=== PATIENT | female | born 1930 | race Caucasian/White ===

== ENCOUNTER → 2016-04-05 | Outpatient (CLI) | payer MEDICARE, OTHER ==
[~2016-04-05] MED LIST: CLOP75TA28 PO; GLIP-116 PO; ISOS60TA24 PO; LINA5TAB PO; RAMI2.5C33 PO; SIMV-8 PO
[2016-04-05 13:23] LABS: Basophils # (auto) 0 uL; Basophils % (auto) 0.3 % (0.0-2.0); Eosinophils # (auto) 0.2 uL; Eosinophils % (auto) 2.8 % (0.0-7.0); Hematocrit 42.1 % (36.0-46.0); Hemoglobin 13.7 g/dL (12.2-16.2); Lymphocytes # (auto) 1.8 uL; Mean Corpuscular Hemoglobin 30.2 pg (28.0-32.0); Mean Corpuscular Hgb Conc. 32.6 g/dL (32.0-36.0); Mean Corpuscular Volume 92.6 fL (80.0-100.0); Monocytes # (auto) 0.5 uL; Monocytes % (auto) 7.1 % (0.0-12.0); Neutrophils # (auto) 4.3 uL; Neutrophils % (auto) 62.8 % (37.0-80.0); Platelet Count (auto) 205 10^3/uL (140-450); Red Cell Distribution Width 13.1 % (11.6-16.0); White Blood Cell 6.8 10^3/uL (4.4-10.8)
[2016-04-05 13:39] LABS: Albumin 4.1 g/dL (3.4-5.0); BUN/Creatinine Ratio 20.3; Bilirubin, Total 0.4 mg/dL (0.2-1.0); Calcium 9.4 mg/dL (8.5-10.1); Potassium 4.1 mmol/L (3.5-5.1); Total Protein 7.4 g/dL (6.4-8.2)
== END | disposition home or self-care (01) ==
LOC: LAB 09:18
PROVIDERS: ATTEND Internal Medicine Cardiovascular Disease
DX: I10 Essential (primary) hypertension (principal); E03.9 Hypothyroidism, unspecified; D64.9 Anemia, unspecified; E11.9 Type 2 diabetes mellitus without complications
CPT/HCPCS: 36415; 80053; 83036; 84436; 84443; 84480; 85025

== ENCOUNTER → 2017-01-07 | Outpatient (CLI) | payer MEDICARE, OTHER ==
[2017-01-07 12:40] LABS: Basophils # (auto) 0 uL; Basophils % (auto) 0.5 % (0.0-2.0); Eosinophils # (auto) 0.1 uL; Hematocrit 40.1 % (36.0-46.0); Hemoglobin 13.3 g/dL (12.2-16.2); Lymphocytes # (auto) 1.7 uL; Lymphocytes % (auto) 27.3 % (10.0-50.0); Mean Corpuscular Hemoglobin 31.9 pg (28.0-32.0); Mean Corpuscular Hgb Conc. 33.2 g/dL (32.0-36.0); Mean Corpuscular Volume 96.1 fL (80.0-100.0); Mean Platelet Volume 7.8 fL (6.9-10.8); Monocytes # (auto) 0.5 uL; Monocytes % (auto) 8.2 % (0.0-12.0); Nucleated Red Blood Cells % 0.6 %; Platelet Count (auto) 176 10^3/uL (140-450); Red Cell Distribution Width 13.5 % (11.8-14.3); White Blood Cell 6.4 10^3/uL (4.4-10.8)
[2017-01-07 12:46] LABS: Urine Bilirubin Negative (Negative); Urine Blood Negative /uL (Negative); Urine Color Yellow (Yellow); Urine Glucose Normal (Normal); Urine Ketone Negative (Negative); Urine Nitrite Negative (Negative); Urine Urobilinogen Normal (Negative)
[2017-01-07 13:09] LABS: Albumin 4.2 g/dL (3.4-5.0); BUN/Creatinine Ratio 22.6; Bilirubin, Direct 0.1 mg/dL (0-0.2); Bilirubin, Total 0.5 mg/dL (0.2-1.0); Calcium 9.4 mg/dL (8.5-10.1); Potassium 4.4 mmol/L (3.5-5.1); Total Protein 7.7 g/dL (6.4-8.2)
== END | disposition home or self-care (01) ==
LOC: LAB 08:08
PROVIDERS: ATTEND Internal Medicine Cardiovascular Disease
DX: I10 Essential (primary) hypertension (principal); E78.00 Pure hypercholesterolemia, unspecified; K74.1 Hepatic sclerosis; E11.9 Type 2 diabetes mellitus without complications; E03.9 Hypothyroidism, unspecified; D64.9 Anemia, unspecified; E55.9 Vitamin D deficiency, unspecified; N39.0 Urinary tract infection, site not specified
CPT/HCPCS: 36415; 80048; 80061; 80076; 81003; 82306; 83036; 84439; 84443; 85025; 87086

== ENCOUNTER → 2017-01-08 | Outpatient (CLI) | payer MEDICARE, OTHER | END | disposition home or self-care (01) | LOC: Rad HDHVI 07:55 | PROVIDERS: ATTEND Internal Medicine Cardiovascular Disease | DX: R07.89 Other chest pain (principal); I10 Essential (primary) hypertension; E11.9 Type 2 diabetes mellitus without complications; E78.5 Hyperlipidemia, unspecified | CPT/HCPCS: 93306; 93926 ==

== ENCOUNTER → 2017-04-04 | Outpatient (CLI) | payer MEDICARE, OTHER ==
[~2017-04-04] VITALS: Ht 30.5 cm; Wt 0.5 kg
[~2017-04-04] MED LIST changes: +ADENOSINE 56 MG in GIVE UN-DILUTED 0 ML IV ONE; +ADENOSINE 90 MG/30 ML INJ IV ONE
== END | disposition home or self-care (01) ==
LOC: Rad HDHVI 09:55
PROVIDERS: ATTEND Internal Medicine Cardiovascular Disease
DX: I73.9 Peripheral vascular disease, unspecified (principal); E11.65 Type 2 diabetes mellitus with hyperglycemia; E78.00 Pure hypercholesterolemia, unspecified; Z79.4 Long term (current) use of insulin
CPT/HCPCS: 78452; 93005; 96374; 96375; A9500; J0153

== ENCOUNTER → 2017-04-08 | Outpatient (CLI) | payer MEDICARE, OTHER ==
[~2017-04-08] MED LIST changes: -ADENOSINE 56 MG in GIVE UN-DILUTED 0 ML IV ONE; -ADENOSINE 90 MG/30 ML INJ IV ONE
== END | disposition home or self-care (01) ==
LOC: Rad HDHVI 08:18
PROVIDERS: ATTEND Internal Medicine Cardiovascular Disease
DX: I73.9 Peripheral vascular disease, unspecified (principal)
CPT/HCPCS: 93880

== ENCOUNTER → 2017-10-02 | Outpatient (CLI) | payer MEDICARE, BC ==
[2017-10-02 12:07] LABS: Basophils # (auto) 0 uL; Basophils % (auto) 0.3 % (0.0-2.0); Eosinophils # (auto) 0.1 uL; Eosinophils % (auto) 1.3 % (0.0-7.0); Hematocrit 37.8 % (36.0-46.0); Hemoglobin 12.5 g/dL (12.2-16.2); Lymphocytes # (auto) 1.7 uL; Lymphocytes % (auto) 21.7 % (10.0-50.0); Mean Corpuscular Hemoglobin 30.8 pg (28.0-32.0); Mean Corpuscular Hgb Conc. 33.1 g/dL (32.0-36.0); Mean Corpuscular Volume 93.2 fL (80.0-100.0); Monocytes # (auto) 0.5 uL; Monocytes % (auto) 6.6 % (0.0-12.0); Neutrophils # (auto) 5.5 uL; Neutrophils % (auto) 70.1 % (37.0-80.0); Nucleated Red Blood Cells % 0.2 %; Platelet Count (auto) 185 10^3/uL (140-450); Red Blood Cells 4.06 10^6/uL (4.0-5.20); Red Cell Distribution Width 14.1 % (11.8-14.3); White Blood Cell 7.9 10^3/uL (4.4-10.8)
[2017-10-02 12:10] LABS: Urine Blood Negative /uL (Negative); Urine Specific Gravity 1.016 (1.001-1.035)
[2017-10-02 12:25] LABS: Free T4 (Free Thyroxine) 1.05 ng/dL (0.89-1.76)
[2017-10-02 12:45] LABS: Albumin 3.8 g/dL (3.4-5.0); BUN/Creatinine Ratio 22.4; Bilirubin, Total 0.5 mg/dL (0.2-1.0); Calcium 9.4 mg/dL (8.5-10.1); Potassium 4.1 mmol/L (3.5-5.1)
== END | disposition home or self-care (01) ==
LOC: LAB 08:36
PROVIDERS: ATTEND Internal Medicine Cardiovascular Disease
DX: Z00.01 Encounter for general adult medical examination with abnormal findings (principal); E11.9 Type 2 diabetes mellitus without complications; E03.9 Hypothyroidism, unspecified; E55.9 Vitamin D deficiency, unspecified; D51.9 Vitamin B12 deficiency anemia, unspecified; N39.0 Urinary tract infection, site not specified; E78.00 Pure hypercholesterolemia, unspecified; I10 Essential (primary) hypertension; E78.2 Mixed hyperlipidemia; Z79.4 Long term (current) use of insulin
CPT/HCPCS: 36415; 80053; 80061; 81003; 82306; 82607; 83036; 84439; 84443; 85025

== ENCOUNTER → 2018-04-27 | Outpatient (CLI) | payer MEDICARE, BC | END | disposition home or self-care (01) | LOC: Rad HDHVI 14:03 | PROVIDERS: ATTEND Internal Medicine Cardiovascular Disease | DX: K57.30 Diverticulosis of large intestine without perforation or abscess without bleeding (principal) | CPT/HCPCS: 74176 ==

== ENCOUNTER → 2018-05-06 | Outpatient (CLI) | payer MEDICARE, BC | END | disposition home or self-care (01) | LOC: Rad HDHVI 13:50 | PROVIDERS: ATTEND Internal Medicine Cardiovascular Disease | DX: I77.1 Stricture of artery (principal); I10 Essential (primary) hypertension; I20.0 Unstable angina | CPT/HCPCS: 93306; 93926 ==

== ENCOUNTER → 2018-05-13 | Outpatient (CLI) | payer MEDICARE, BC ==
[~2018-05-13] VITALS: Ht 170.2 cm; Wt 64.9 kg
[~2018-05-13] MED LIST changes: +ADENOSINE 54 MG in GIVE UN-DILUTED 0 ML IV ONE; +ADENOSINE 90 MG/30 ML INJ IV ONE
[2018-05-13 11:17] LABS: Urine Blood Negative /uL (Negative); Urine Specific Gravity 1.016 (1.001-1.035)
[2018-05-13 11:23] LABS: Calcium 9.6 mg/dL (8.5-10.1); Potassium 4.2 mmol/L (3.5-5.1)
[2018-05-13 11:28] LABS: Bilirubin, Total 0.5 mg/dL (0.2-1.0); Total Protein 7.5 g/dL (6.4-8.2)
[2018-05-13 11:34] LABS: Free T4 (Free Thyroxine) 0.94 ng/dL (0.89-1.76)
[2018-05-13 11:43] LABS: Basophils # (auto) 0 uL; Basophils % (auto) 0.2 % (0.0-2.0); Eosinophils # (auto) 0.1 uL; Hemoglobin 13.9 g/dL (12.2-16.2); Lymphocytes # (auto) 1.8 uL; Lymphocytes % (auto) 23.1 % (10.0-50.0); Mean Corpuscular Hemoglobin 31.7 pg (28.0-32.0); Mean Corpuscular Hgb Conc. 33.9 g/dL (32.0-36.0); Mean Corpuscular Volume 93.5 fL (80.0-100.0); Monocytes # (auto) 0.5 uL; Monocytes % (auto) 6.1 % (0.0-12.0); Neutrophils # (auto) 5.3 uL; Neutrophils % (auto) 69.6 % (37.0-80.0); Nucleated Red Blood Cells % 0.2 %; Platelet Count (auto) 174 10^3/uL (140-450); Red Blood Cells 4.38 10^6/uL (4.0-5.20); Red Cell Distribution Width 13.3 % (11.8-14.3); White Blood Cell 7.6 10^3/uL (4.4-10.8)
== END | disposition home or self-care (01) ==
LOC: Rad HDHVI 07:57
PROVIDERS: ATTEND Internal Medicine Cardiovascular Disease
DX: I73.9 Peripheral vascular disease, unspecified (principal); E11.649 Type 2 diabetes mellitus with hypoglycemia without coma; R10.9 Unspecified abdominal pain; I10 Essential (primary) hypertension; E03.9 Hypothyroidism, unspecified; E55.9 Vitamin D deficiency, unspecified; E11.9 Type 2 diabetes mellitus without complications; D51.9 Vitamin B12 deficiency anemia, unspecified; N39.0 Urinary tract infection, site not specified
CPT/HCPCS: 36415; 78452; 80053; 80061; 81003; 82306; 82607; 83036; 84439; 84443; 85025; 87086; 93005; 96374; 96375; A9500; J0153

== ENCOUNTER → 2018-06-12 | Outpatient (CLI) | payer MEDICARE, OTHER ==
[~2018-06-12] VITALS: Ht 30.5 cm; Wt 64.4 kg
[~2018-06-12] MED LIST changes: -ADENOSINE 54 MG in GIVE UN-DILUTED 0 ML IV ONE; -ADENOSINE 90 MG/30 ML INJ IV ONE; +ALOG25TA PO; +CARI-277 PO; +CLON0.1T PO; +RAMI5CAP40 PO; +SIMV-13 PO; +cloNIDine HCL 0.1 MG TAB ONE; +cloNIDine HCL 0.1 MG TAB PO ONE
[2018-06-12 09:30] VITALS: BP 206/84
[2018-06-12 10:48] VITALS: BP 133/56
--- NOTE | 2018-06-12 10:48 | NUR ---
Pre-Op Discharge Summary: See e-MAR for any medications given for this visit. Pre-op orders received and carried out per MD of EKG, LABS and chest xrays. Patient given a copy of EKG with instructions to go to [facility] out patient for further follow up care. NOTE PATIENT GIVEN PRESCRIPTION FOR SOMA 350MG QHS, AND PRESCRIPTION FOR CLONIDINE 0.1MG SENT ELECTRONICALLY
[2018-06-12 11:57] LABS: Basophils # (auto) 0 uL; Basophils % (auto) 0.4 % (0.0-2.0); Eosinophils # (auto) 0.1 uL; Eosinophils % (auto) 1.4 % (0.0-7.0); Hematocrit 40.7 % (36.0-46.0); Hemoglobin 13.7 g/dL (12.2-16.2); Lymphocytes % (auto) 25.9 % (10.0-50.0); Mean Corpuscular Hemoglobin 31.5 pg (28.0-32.0); Mean Corpuscular Hgb Conc. 33.7 g/dL (32.0-36.0); Mean Corpuscular Volume 93.5 fL (80.0-100.0); Monocytes # (auto) 0.4 uL; Monocytes % (auto) 5.9 % (0.0-12.0); Neutrophils % (auto) 66.4 % (37.0-80.0); Nucleated Red Blood Cells % 0.1 %; Platelet Count (auto) 161 10^3/uL (140-450); Red Blood Cells 4.35 10^6/uL (4.0-5.20); Red Cell Distribution Width 13.4 % (11.8-14.3); White Blood Cell 7.6 10^3/uL (4.4-10.8)
[2018-06-12 12:16] LABS: INR 0.94 (0.9-1.15); Partial Thromboplastin Time 26.1 sec (23.78-33.04); Prothrombin Time 10.1 sec (9.27-12.13)
[2018-06-12 13:01] LABS: Potassium 4.3 mmol/L (3.5-5.1)
[2018-06-12 13:23] LABS: Calcium 8.8 mg/dL (8.5-10.1)
== END | disposition home or self-care (01) ==
LOC: Rad HDHVI 09:09
PROVIDERS: ATTEND Internal Medicine Cardiovascular Disease
DX: Z01.818 Encounter for other preprocedural examination (principal); D64.9 Anemia, unspecified; R79.1 Abnormal coagulation profile; I10 Essential (primary) hypertension; I70.0 Atherosclerosis of aorta; E78.00 Pure hypercholesterolemia, unspecified; E11.9 Type 2 diabetes mellitus without complications; R94.31 Abnormal electrocardiogram [ECG] [EKG]
CPT/HCPCS: 36415; 71046; 80048; 85025; 85610; 85730; 93005; G0463

== ENCOUNTER → 2018-07-13 | Outpatient (CLI) | payer MEDICARE, BC ==
[~2018-07-13] MED LIST changes: -LINA5TAB PO; -RAMI2.5C33 PO; -SIMV-8 PO; -cloNIDine HCL 0.1 MG TAB ONE; -cloNIDine HCL 0.1 MG TAB PO ONE
[2018-07-13 11:50] VITALS: BP 104/59
--- NOTE | 2018-07-13 11:50 | NUR ---
[facility] ARRIVED [facility] FOR [facility] EKG, CXR , LAB. VITAL SIGNS OBTAINED
[2018-07-13 12:14] LABS: Basophils # (auto) 0 uL; Basophils % (auto) 0.3 % (0.0-2.0); Eosinophils # (auto) 0.4 uL; Eosinophils % (auto) 6.1 % (0.0-7.0); Hematocrit 37.4 % (36.0-46.0); Hemoglobin 12.3 g/dL (12.2-16.2); Lymphocytes # (auto) 1.5 uL; Lymphocytes % (auto) 21.2 % (10.0-50.0); Mean Corpuscular Hemoglobin 30.8 pg (28.0-32.0); Mean Corpuscular Volume 93.4 fL (80.0-100.0); Monocytes # (auto) 0.5 uL; Monocytes % (auto) 7.2 % (0.0-12.0); Neutrophils # (auto) 4.6 uL; Neutrophils % (auto) 65.2 % (37.0-80.0); Platelet Count (auto) 160 10^3/uL (140-450); Red Cell Distribution Width 13.4 % (11.8-14.3)
[2018-07-13 12:28] LABS: INR 0.95 (0.9-1.15); Partial Thromboplastin Time 26.8 sec (23.78-33.04); Prothrombin Time 10.2 sec (9.27-12.13)
--- NOTE | 2018-07-13 12:32 | NUR ---
Pre-Op Discharge Summary: See e-MAR for any medications given for this visit. Pre-op orders received and carried out per MD of EKG, LABS and chest xrays. Patient given a copy of EKG with instructions to go to [facility] out patient for further follow up care. PT BP HIGH, PT STATED SHE DID NOT TAKE HER CLONODINE THIS MORNING BECAUSE HER BP WAS LOW. BP LOW ON ARRIVAL. ADVISED PAT TO CHECK BP WHEN HOME FOR a couple hours and take medicine if still high.
[2018-07-13 12:34] LABS: Potassium 4.6 mmol/L (3.5-5.1)
[2018-07-13 13:21] LABS: BUN/Creatinine Ratio 27.7
[2018-07-13 17:32] VITALS: BP 168/66
== END | disposition home or self-care (01) ==
LOC: Rad HDHVI 10:53
PROVIDERS: ATTEND Internal Medicine Cardiovascular Disease
DX: Z01.812 Encounter for preprocedural laboratory examination (principal); M75.31 Calcific tendinitis of right shoulder; I70.0 Atherosclerosis of aorta; I73.9 Peripheral vascular disease, unspecified; D64.9 Anemia, unspecified; R79.1 Abnormal coagulation profile; I10 Essential (primary) hypertension
CPT/HCPCS: 36415; 71046; 80048; 85025; 85610; 85730; 93005; G0463

== ENCOUNTER 2018-07-16 07:22 | Inpatient (IN) | payer MEDICARE, OTHER | END 2018-07-17 11:03 | disposition home or self-care (01) | LOC: CATH 07:22 → CENTRAL 14:11 | PROC: 04CL3ZZ Extirpation of Matter from Left Femoral Artery, Percutaneous Approach (ICD-10-PCS; principal; ~2018-07-16) | PROC: 047L3ZZ Dilation of Left Femoral Artery, Percutaneous Approach (ICD-10-PCS; ~2018-07-16) | PROC: B41G1ZZ Fluoroscopy of Left Lower Extremity Arteries using Low Osmolar Contrast (ICD-10-PCS; ~2018-07-16) | PROC: B41F1ZZ Fluoroscopy of Right Lower Extremity Arteries using Low Osmolar Contrast (ICD-10-PCS; ~2018-07-16) | DX: I73.9 Peripheral vascular disease, unspecified (principal) ==

== ENCOUNTER → 2018-08-05 | Outpatient (CLI) | payer MEDICARE, BC ==
[2018-08-05 12:40] LABS: Basophils # (auto) 0 uL; Basophils % (auto) 0.5 % (0.0-2.0); Eosinophils # (auto) 0.3 uL; Eosinophils % (auto) 5.7 % (0.0-7.0); Hematocrit 34.4 % (36.0-46.0); Hemoglobin 11.7 g/dL (12.2-16.2); Lymphocytes # (auto) 1.3 uL; Lymphocytes % (auto) 21.9 % (10.0-50.0); Mean Corpuscular Hemoglobin 31.6 pg (28.0-32.0); Mean Corpuscular Hgb Conc. 34.1 g/dL (32.0-36.0); Mean Corpuscular Volume 92.7 fL (80.0-100.0); Monocytes # (auto) 0.5 uL; Neutrophils # (auto) 3.8 uL; Neutrophils % (auto) 63.9 % (37.0-80.0); Nucleated Red Blood Cells % 0.1 %; Platelet Count (auto) 162 10^3/uL (140-450); Red Blood Cells 3.71 10^6/uL (4.0-5.20); Red Cell Distribution Width 13.7 % (11.8-14.3); White Blood Cell 5.9 10^3/uL (4.4-10.8)
[2018-08-05 12:47] LABS: Potassium 4.4 mmol/L (3.5-5.1)
[2018-08-05 13:15] LABS: Calcium 8.9 mg/dL (8.5-10.1)
== END | disposition home or self-care (01) ==
LOC: Rad HDHVI 08:03
PROVIDERS: ATTEND Internal Medicine Cardiovascular Disease
DX: I74.3 Embolism and thrombosis of arteries of the lower extremities (principal); I10 Essential (primary) hypertension; D64.9 Anemia, unspecified; I73.9 Peripheral vascular disease, unspecified
CPT/HCPCS: 36415; 80048; 85025; 93926

== ENCOUNTER → 2018-10-30 | Outpatient (CLI) | payer MEDICARE, BC ==
[~2018-10-30] MED LIST changes: -GLIP-116 PO; +GLIP10TA9 PO
== END | disposition home or self-care (01) ==
LOC: Rad HDHVI 12:08
PROVIDERS: ATTEND Internal Medicine Cardiovascular Disease
DX: M48.061 Spinal stenosis, lumbar region without neurogenic claudication (principal); M85.88 Other specified disorders of bone density and structure, other site; M12.88 Other specific arthropathies, not elsewhere classified, other specified site; I70.0 Atherosclerosis of aorta; Q89.9 Congenital malformation, unspecified
CPT/HCPCS: 72131

== ENCOUNTER → 2018-11-04 | Outpatient (CLI) | payer MEDICARE, BC | END | disposition home or self-care (01) | LOC: Rad HDHVI 07:58 | PROVIDERS: ATTEND Internal Medicine Cardiovascular Disease | DX: I70.202 Unspecified atherosclerosis of native arteries of extremities, left leg (principal) | CPT/HCPCS: 93926 ==

== ENCOUNTER → 2018-12-18 | Outpatient (CLI) | payer MEDICARE, BC | END | disposition home or self-care (01) | LOC: Rad HDHVI 10:10 | PROVIDERS: ATTEND Internal Medicine Cardiovascular Disease | DX: I67.2 Cerebral atherosclerosis (principal); G45.9 Transient cerebral ischemic attack, unspecified; G31.9 Degenerative disease of nervous system, unspecified | CPT/HCPCS: 70450 ==

== ENCOUNTER → 2018-12-23 | Outpatient (CLI) | payer MEDICARE, BC | END | disposition home or self-care (01) | LOC: Rad HDHVI 10:46 | PROVIDERS: ATTEND Internal Medicine Cardiovascular Disease | DX: E11.9 Type 2 diabetes mellitus without complications (principal); R41.0 Disorientation, unspecified | CPT/HCPCS: 93880 ==

== ENCOUNTER → 2019-04-26 | Outpatient (CLI) | payer MEDICARE, BC ==
[~2019-04-26] VITALS: Ht 170.2 cm; Wt 64.4 kg
[~2019-04-26] MED LIST changes: +ADENOSINE 54 MG in GIVE UN-DILUTED 0 ML IV ONE; +ADENOSINE 90 MG/30 ML INJ IV ONE; +cloNIDine HCL 0.1 MG TAB ONE
[2019-04-26 12:20] LABS: Basophils # (auto) 0 uL; Basophils % (auto) 0.2 % (0.0-2.0); Eosinophils # (auto) 0.1 uL; Eosinophils % (auto) 1.9 % (0.0-7.0); Hematocrit 35.7 % (36.0-46.0); Hemoglobin 12.2 g/dL (12.2-16.2); Lymphocytes # (auto) 1.4 uL; Lymphocytes % (auto) 20.1 % (10.0-50.0); Mean Corpuscular Hemoglobin 31.9 pg (28.0-32.0); Mean Corpuscular Hgb Conc. 34.2 g/dL (32.0-36.0); Mean Corpuscular Volume 93.2 fL (80.0-100.0); Monocytes # (auto) 0.4 uL; Neutrophils # (auto) 5.2 uL; Neutrophils % (auto) 72.8 % (37.0-80.0); Nucleated Red Blood Cells % 0.1 %; Platelet Count (auto) 195 10^3/uL (140-450); Red Blood Cells 3.83 10^6/uL (4.0-5.20); Red Cell Distribution Width 13.1 % (11.8-14.3); White Blood Cell 7.2 10^3/uL (4.4-10.8)
[2019-04-26 12:28] LABS: Urine Blood Negative /uL (Negative); Urine Specific Gravity 1.014 (1.001-1.035)
[2019-04-26 12:42] LABS: Albumin 3.7 g/dL (3.4-5.0); Calcium 9.2 mg/dL (8.5-10.1); Potassium 4.4 mmol/L (3.5-5.1)
[2019-04-26 12:45] LABS: Free T4 (Free Thyroxine) 0.99 ng/dL (0.89-1.76)
[2019-04-26 12:48] LABS: BUN/Creatinine Ratio 27.3; Bilirubin, Total 0.3 mg/dL (0.2-1.0); Total Protein 7.4 g/dL (6.4-8.2)
== END | disposition home or self-care (01) ==
LOC: Rad HDHVI 08:57
PROVIDERS: ATTEND Internal Medicine Cardiovascular Disease
DX: E03.9 Hypothyroidism, unspecified (principal); K90.9 Intestinal malabsorption, unspecified; I48.0 Paroxysmal atrial fibrillation; N39.0 Urinary tract infection, site not specified; D51.9 Vitamin B12 deficiency anemia, unspecified; E78.00 Pure hypercholesterolemia, unspecified; Z79.899 Other long term (current) drug therapy
CPT/HCPCS: 36415; 78452; 80053; 80061; 81003; 82306; 82607; 83036; 84439; 84443; 85025; 93005; 96374; 96375; A9500; J0153

== ENCOUNTER → 2019-05-07 | Outpatient (CLI) | payer MEDICARE, BC ==
[~2019-05-07] MED LIST changes: -ADENOSINE 54 MG in GIVE UN-DILUTED 0 ML IV ONE; -ADENOSINE 90 MG/30 ML INJ IV ONE; +IOHEXOL 350 MG/ML 100ML IJ ONE; +READI-CAT 2 (BARIUM SULF)(VANILLA SMOOTHIE) 450ML ONE; -cloNIDine HCL 0.1 MG TAB ONE
== END | disposition home or self-care (01) ==
LOC: Rad HDHVI 11:03
PROVIDERS: ATTEND Internal Medicine Cardiovascular Disease
DX: K57.30 Diverticulosis of large intestine without perforation or abscess without bleeding (principal); I70.8 Atherosclerosis of other arteries; Z90.710 Acquired absence of both cervix and uterus
CPT/HCPCS: 74176

== ENCOUNTER → 2019-09-06 | Outpatient (CLI) | payer MEDICARE, BC ==
[~2019-09-06] VITALS: Ht 33 cm; Wt 61.5 kg
[~2019-09-06] MED LIST changes: -IOHEXOL 350 MG/ML 100ML IJ ONE; +MULTIPLE VIT 10 ML IV ONE; +MVI in SODIUM CHLORIDE 0.9% 500 ML IVB ONE; -READI-CAT 2 (BARIUM SULF)(VANILLA SMOOTHIE) 450ML ONE; +cloNIDine HCL 0.1 MG TAB ONE; +cloNIDine HCL 0.1 MG TAB PO ONE
[2019-09-06 12:19] LABS: Basophils # (auto) 0 10 ^3/uL (0-0.2); Basophils % (auto) 0.3 % (0.0-2.0); Eosinophils # (auto) 0 10 ^3/uL (0-0.8); Eosinophils % (auto) 0.6 % (0.0-7.0); Hematocrit 40.4 % (36.0-46.0); Hemoglobin 13.7 g/dL (12.2-16.2); Lymphocytes # (auto) 1.4 10 ^3/uL (0.4-5.4); Lymphocytes % (auto) 19.1 % (10.0-50.0); Mean Corpuscular Hemoglobin 31.5 pg (28.0-32.0); Mean Corpuscular Volume 92.8 fL (80.0-100.0); Monocytes # (auto) 0.5 10 ^3/uL (0-1.3); Monocytes % (auto) 6.2 % (0.0-12.0); Neutrophils # (auto) 5.4 10 ^3/uL (1.6-8.6); Neutrophils % (auto) 73.8 % (37.0-80.0); Platelet Count (auto) 181 10^3/uL (140-450); Red Blood Cells 4.36 10^6/uL (4.0-5.20); Red Cell Distribution Width 13.8 % (11.8-14.3); White Blood Cell 7.4 10^3/uL (4.4-10.8)
[2019-09-06 12:30] LABS: Albumin 3.9 g/dL (3.4-5.0); Potassium 4.6 mmol/L (3.5-5.1)
[2019-09-06 12:38] LABS: BUN/Creatinine Ratio 19.7; Bilirubin, Total 0.6 mg/dL (0.2-1.0); Calcium 9.1 mg/dL (8.5-10.1); Total Protein 7.1 g/dL (6.4-8.2)
[2019-09-06 15:30] VITALS: BP 149/56
[2019-09-06 16:05] LABS: Urine Blood Negative /uL (Negative); Urine Specific Gravity 1.016 (1.001-1.035)
== END | disposition home or self-care (01) ==
LOC: Rad HDHVI 10:50
PROVIDERS: ATTEND Internal Medicine Cardiovascular Disease
DX: N39.0 Urinary tract infection, site not specified (principal); E03.9 Hypothyroidism, unspecified; I10 Essential (primary) hypertension; I25.10 Atherosclerotic heart disease of native coronary artery without angina pectoris; E11.9 Type 2 diabetes mellitus without complications; K90.9 Intestinal malabsorption, unspecified; I63.9 Cerebral infarction, unspecified; Z79.899 Other long term (current) drug therapy
CPT/HCPCS: 36415; 70450; 80053; 80061; 81003; 82306; 83036; 84443; 85025; 87086; 96365; 96366; G0463

== ENCOUNTER → 2019-12-13 | Outpatient (CLI) | payer MEDICARE, BC ==
[~2019-12-13] MED LIST changes: -MULTIPLE VIT 10 ML IV ONE; -MVI in SODIUM CHLORIDE 0.9% 500 ML IVB ONE; -cloNIDine HCL 0.1 MG TAB ONE; -cloNIDine HCL 0.1 MG TAB PO ONE
[2019-12-13 14:33] VITALS: BP 180/70
--- NOTE | 2019-12-13 14:33 | NUR ---
Signature Attestation Statement: I SARABJIT ESCOBAR performed this procedure EECP on this patient. Addendum: 12/13/19 at 1434 by SARABJIT ESCOBAR HDHI2 Amended: Links added.
--- NOTE | 2019-12-13 14:38 | NUR ---
Signature Attestation Statement: I SARABJIT ESCOBAR performed this procedure EECP on this patient. Addendum: 12/13/19 at 1438 by SARABJIT ESCOBAR HDHI2 Amended: Links added.
[2019-12-13 15:26] VITALS: BP 142/61
--- NOTE | 2019-12-13 15:26 | NUR ---
Signature Attestation Statement: I SARABJIT ESCOBAR performed this procedure EECP on this patient. Addendum: 12/13/19 at 1526 by SARABJIT ESCOBAR HDHI2 Amended: Links added.
--- NOTE | 2019-12-13 15:36 | NUR ---
Signature Attestation Statement: I SARABJIT ESCOBAR performed this procedure EECP on this patient. Addendum: 12/13/19 at 1536 by SARABJIT ESCOBAR HDHI2 Amended: Links added.
== END | disposition home or self-care (01) ==
LOC: CHF HDHVI 13:49
PROVIDERS: ATTEND Internal Medicine Cardiovascular Disease
DX: I25.118 Atherosclerotic heart disease of native coronary artery with other forms of angina pectoris (principal); I50.43 Acute on chronic combined systolic (congestive) and diastolic (congestive) heart failure; I25.5 Ischemic cardiomyopathy; I63.9 Cerebral infarction, unspecified; I10 Essential (primary) hypertension; E78.5 Hyperlipidemia, unspecified; R06.02 Shortness of breath
CPT/HCPCS: G0166

== ENCOUNTER → 2019-12-14 | Outpatient (CLI) | payer MEDICARE, BC ==
[2019-12-14 14:37] VITALS: BP 157/60
--- NOTE | 2019-12-14 14:37 | NUR ---
Signature Attestation Statement: I SARABJIT ESCOBAR performed this procedure EECP on this patient. Addendum: 12/14/19 at 1437 by SARABJIT ESCOBAR HDHI2 Amended: Links added.
--- NOTE | 2019-12-14 14:38 | NUR ---
Signature Attestation Statement: I SARABJIT ESCOBAR performed this procedure EECP on this patient. Addendum: 12/14/19 at 1439 by SARABJIT ESCOBAR HDHI2 Amended: Links added.
--- NOTE | 2019-12-14 14:38 | NUR ---
Signature Attestation Statement: I SARABJIT ESCOBAR performed this procedure EECP on this patient. Addendum: 12/14/19 at 1438 by SARABJIT ESCOBAR HDHI2 Amended: Links added.
[2019-12-14 15:16] VITALS: BP 162/67
--- NOTE | 2019-12-14 15:16 | NUR ---
Signature Attestation Statement: I SARABJIT ESCOBAR performed this procedure EECP on this patient. Addendum: 12/14/19 at 1516 by SARABJIT ESCOBAR HDHI2 Amended: Links added.
--- NOTE | 2019-12-14 15:27 | NUR ---
Signature Attestation Statement: I SARABJIT ESCOBAR performed this procedure EECP on this patient. Addendum: 12/14/19 at 1527 by SARABJIT ESCOBAR HDHI2 Amended: Links added.
== END | disposition home or self-care (01) ==
LOC: CHF HDHVI 13:47
PROVIDERS: ATTEND Internal Medicine Cardiovascular Disease
DX: I25.118 Atherosclerotic heart disease of native coronary artery with other forms of angina pectoris (principal); I11.0 Hypertensive heart disease with heart failure; I50.43 Acute on chronic combined systolic (congestive) and diastolic (congestive) heart failure; I63.9 Cerebral infarction, unspecified; I25.5 Ischemic cardiomyopathy; E78.5 Hyperlipidemia, unspecified; R06.02 Shortness of breath
CPT/HCPCS: G0166

== ENCOUNTER → 2019-12-15 | Outpatient (CLI) | payer MEDICARE, BC ==
[2019-12-15 14:35] VITALS: BP 181/66
--- NOTE | 2019-12-15 14:35 | NUR ---
Signature Attestation Statement: I SARABJIT ESCOBAR performed this procedure EECP on this patient. Addendum: 12/15/19 at 1436 by SARABJIT ESCOBAR HDHI2 Amended: Links added.
--- NOTE | 2019-12-15 14:35 | NUR ---
Signature Attestation Statement: I SARABJIT ESCOBAR performed this procedure EECP on this patient. Addendum: 12/15/19 at 1435 by SARABJIT ESCOBAR HDHI2 Amended: Links added.
[2019-12-15 15:11] VITALS: BP 172/68
--- NOTE | 2019-12-15 15:11 | NUR ---
Signature Attestation Statement: I SARABJIT ESCOBAR performed this procedure EECP on this patient. Addendum: 12/15/19 at 1511 by SARABJIT ESCOBAR HDHI2 Amended: Links added.
--- NOTE | 2019-12-15 15:24 | NUR ---
Signature Attestation Statement: I SARABJIT ESCOBAR performed this procedure EECP on this patient. Addendum: 12/15/19 at 1524 by SARABJIT ESCOBAR HDHI2 Amended: Links added.
== END | disposition home or self-care (01) ==
LOC: CHF HDHVI 13:42
PROVIDERS: ATTEND Internal Medicine Cardiovascular Disease
DX: I25.118 Atherosclerotic heart disease of native coronary artery with other forms of angina pectoris (principal); I11.0 Hypertensive heart disease with heart failure; I50.43 Acute on chronic combined systolic (congestive) and diastolic (congestive) heart failure; I63.9 Cerebral infarction, unspecified; I25.5 Ischemic cardiomyopathy; E78.5 Hyperlipidemia, unspecified; R06.02 Shortness of breath
CPT/HCPCS: G0166

== ENCOUNTER → 2019-12-16 | Outpatient (CLI) | payer MEDICARE, BC ==
[2019-12-16 14:32] VITALS: BP 150/58
--- NOTE | 2019-12-16 14:32 | NUR ---
Signature Attestation Statement: I SARABJIT ESCOBAR performed this procedure EECP on this patient. Addendum: 12/16/19 at 1433 by SARABJIT ESCOBAR HDHI2 Amended: Links added.
--- NOTE | 2019-12-16 14:33 | NUR ---
Signature Attestation Statement: I SARABJIT ESCOBAR performed this procedure EECP on this patient. Addendum: 12/16/19 at 1434 by SARABJIT ESCOBAR HDHI2 Amended: Links added.
[2019-12-16 15:02] VITALS: BP 163/63
--- NOTE | 2019-12-16 15:02 | NUR ---
Signature Attestation Statement: I SARABJIT ESCOBAR performed this procedure EECP on this patient. Addendum: 12/16/19 at 1502 by SARABJIT ESCOBAR HDHI2 Amended: Links added.
--- NOTE | 2019-12-16 15:14 | NUR ---
Signature Attestation Statement: I SARABJIT ESCOBAR performed this procedure EECP on this patient. Addendum: 12/16/19 at 1515 by SARABJIT ESCOBAR HDHI2 Amended: Links added.
== END | disposition home or self-care (01) ==
LOC: CHF HDHVI 13:39
PROVIDERS: ATTEND Internal Medicine Cardiovascular Disease
DX: I25.118 Atherosclerotic heart disease of native coronary artery with other forms of angina pectoris (principal); I25.5 Ischemic cardiomyopathy; I50.43 Acute on chronic combined systolic (congestive) and diastolic (congestive) heart failure; I63.9 Cerebral infarction, unspecified; I10 Essential (primary) hypertension; E78.5 Hyperlipidemia, unspecified; R06.02 Shortness of breath
CPT/HCPCS: G0166

== ENCOUNTER → 2019-12-17 | Outpatient (CLI) | payer MEDICARE, BC ==
[2019-12-17 14:38] VITALS: BP 176/69
--- NOTE | 2019-12-17 14:38 | NUR ---
Signature Attestation Statement: I SARABJIT ESCOBAR performed this procedure EECP on this patient. Addendum: 12/17/19 at 1439 by SARABJIT ESCOBAR HDHI2 Amended: Links added.
--- NOTE | 2019-12-17 15:03 | NUR ---
Signature Attestation Statement: I SARABJIT ESCOBAR performed this procedure EECP on this patient. Addendum: 12/17/19 at 1503 by SARABJIT ESCOBAR HDHI2 Amended: Links added.
--- NOTE | 2019-12-17 15:04 | NUR ---
Signature Attestation Statement: I SARABJIT ESCOBAR performed this procedure EECP on this patient. Addendum: 12/17/19 at 1505 by SARABJIT ESCOBAR HDHI2 Amended: Links added.
[2019-12-17 15:12] VITALS: BP 153/66
--- NOTE | 2019-12-17 15:12 | NUR ---
Signature Attestation Statement: I SARABJIT ESCOBAR performed this procedure EECP on this patient. Addendum: 12/17/19 at 1512 by SARABJIT ESCOBAR HDHI2 Amended: Links added.
--- NOTE | 2019-12-17 15:24 | NUR ---
Signature Attestation Statement: I SARABJIT ESCOBAR performed this procedure EECP on this patient. Addendum: 12/17/19 at 1524 by SARABJIT ESCOBAR HDHI2 Amended: Links added.
== END | disposition home or self-care (01) ==
LOC: CHF HDHVI 13:54
PROVIDERS: ATTEND Internal Medicine Cardiovascular Disease
DX: I25.118 Atherosclerotic heart disease of native coronary artery with other forms of angina pectoris (principal); I25.5 Ischemic cardiomyopathy; I50.43 Acute on chronic combined systolic (congestive) and diastolic (congestive) heart failure; I63.9 Cerebral infarction, unspecified; R06.02 Shortness of breath; I10 Essential (primary) hypertension; E78.5 Hyperlipidemia, unspecified
CPT/HCPCS: G0166

== ENCOUNTER → 2019-12-20 | Outpatient (CLI) | payer MEDICARE, BC ==
[2019-12-20 14:43] VITALS: BP 173/70
--- NOTE | 2019-12-20 14:44 | NUR ---
Signature Attestation Statement: I SARABJIT ESCOBAR performed this procedure EECP on this patient. Addendum: 12/20/19 at 1444 by SARABJIT ESCOBAR HDHI2 Amended: Links added.
--- NOTE | 2019-12-20 14:45 | NUR ---
Signature Attestation Statement: I SARABJIT ESCOBAR performed this procedure EECP on this patient. Addendum: 12/20/19 at 1445 by SARABJIT ESCOBAR HDHI2 Amended: Links added.
--- NOTE | 2019-12-20 14:45 | NUR ---
Signature Attestation Statement: I SARABJIT ESCOBAR performed this procedure EECP on this patient. Addendum: 12/20/19 at 1446 by SARABJIT ESCOBAR HDHI2 Amended: Links added.
[2019-12-20 15:28] VITALS: BP 171/63
--- NOTE | 2019-12-20 15:28 | NUR ---
Signature Attestation Statement: I SARABJIT ESCOBAR performed this procedure EECP on this patient. Addendum: 12/20/19 at 1528 by SARABJIT ESCOBAR HDHI2 Amended: Links added.
--- NOTE | 2019-12-20 15:40 | NUR ---
Signature Attestation Statement: I SARABJIT ESCOBAR performed this procedure EECP on this patient. Addendum: 12/20/19 at 1540 by SARABJIT ESCOBAR HDHI2 Amended: Links added.
== END | disposition home or self-care (01) ==
LOC: CHF HDHVI 13:43
PROVIDERS: ATTEND Internal Medicine Cardiovascular Disease
DX: I25.118 Atherosclerotic heart disease of native coronary artery with other forms of angina pectoris (principal); I25.5 Ischemic cardiomyopathy; E78.5 Hyperlipidemia, unspecified; I10 Essential (primary) hypertension; I50.43 Acute on chronic combined systolic (congestive) and diastolic (congestive) heart failure; I63.9 Cerebral infarction, unspecified; R06.02 Shortness of breath
CPT/HCPCS: G0166

== ENCOUNTER → 2019-12-21 | Outpatient (CLI) | payer MEDICARE, BC ==
[2019-12-21 14:56] VITALS: BP 142/68
[2019-12-21 15:34] VITALS: BP 153/66
== END | disposition home or self-care (01) ==
LOC: CHF HDHVI 13:52
PROVIDERS: ATTEND Internal Medicine Cardiovascular Disease
DX: I25.118 Atherosclerotic heart disease of native coronary artery with other forms of angina pectoris (principal); I11.0 Hypertensive heart disease with heart failure; I50.43 Acute on chronic combined systolic (congestive) and diastolic (congestive) heart failure; I25.5 Ischemic cardiomyopathy; E78.5 Hyperlipidemia, unspecified; R06.02 Shortness of breath; I63.9 Cerebral infarction, unspecified
CPT/HCPCS: G0166

== ENCOUNTER → 2019-12-22 | Outpatient (CLI) | payer MEDICARE, BC ==
[2019-12-22 14:44] VITALS: BP 180/71
[2019-12-22 15:27] VITALS: BP 150/58
== END | disposition home or self-care (01) ==
LOC: CHF HDHVI 13:50
PROVIDERS: ATTEND Internal Medicine Cardiovascular Disease
DX: I25.118 Atherosclerotic heart disease of native coronary artery with other forms of angina pectoris (principal); I25.5 Ischemic cardiomyopathy; I63.9 Cerebral infarction, unspecified; R06.02 Shortness of breath; I10 Essential (primary) hypertension; E78.5 Hyperlipidemia, unspecified; I50.43 Acute on chronic combined systolic (congestive) and diastolic (congestive) heart failure
CPT/HCPCS: G0166

== ENCOUNTER → 2019-12-23 | Outpatient (CLI) | payer MEDICARE, BC ==
[2019-12-23 14:37] VITALS: BP 160/72
--- NOTE | 2019-12-23 14:38 | NUR ---
Signature Attestation Statement: I SARABJIT ESCOBAR performed this procedure EECP on this patient. Addendum: 12/23/19 at 1438 by SARABJIT ESCOBAR HDHI2 Amended: Links added.
--- NOTE | 2019-12-23 14:38 | NUR ---
Signature Attestation Statement: I SARABJIT ESCOBAR performed this procedure EECP on this patient. Addendum: 12/23/19 at 1439 by SARABJIT ESCOBAR HDHI2 Amended: Links added.
--- NOTE | 2019-12-23 15:24 | NUR ---
Signature Attestation Statement: I SARABJIT ESCOBAR performed this procedure EECP on this patient. Addendum: 12/23/19 at 1525 by SARABJIT ESCOBAR HDHI2 Amended: Links added.
[2019-12-23 15:25] VITALS: BP 144/68
--- NOTE | 2019-12-23 15:39 | NUR ---
Signature Attestation Statement: I SARABJIT ESCOBAR performed this procedure EECP on this patient. Addendum: 12/23/19 at 1540 by SARABJIT ESCOBAR HDHI2 Amended: Links added.
== END | disposition home or self-care (01) ==
LOC: CHF HDHVI 13:56
PROVIDERS: ATTEND Internal Medicine Cardiovascular Disease
DX: I25.118 Atherosclerotic heart disease of native coronary artery with other forms of angina pectoris (principal); I25.5 Ischemic cardiomyopathy; I50.43 Acute on chronic combined systolic (congestive) and diastolic (congestive) heart failure; I63.9 Cerebral infarction, unspecified; I10 Essential (primary) hypertension; R06.02 Shortness of breath; E78.5 Hyperlipidemia, unspecified
CPT/HCPCS: G0166

== ENCOUNTER → 2019-12-24 | Outpatient (CLI) | payer MEDICARE, BC ==
[2019-12-24 14:39] VITALS: BP 142/74
--- NOTE | 2019-12-24 14:40 | NUR ---
Signature Attestation Statement: I SARABJIT ESCOBAR performed this procedure EECP on this patient. Addendum: 12/24/19 at 1440 by SARABJIT ESCOBAR HDHI2 Amended: Links added.
--- NOTE | 2019-12-24 14:41 | NUR ---
Signature Attestation Statement: I SARABJIT ESCOBAR performed this procedure EECP on this patient. Addendum: 12/24/19 at 1441 by SARABJIT ESCOBAR HDHI2 Amended: Links added.
[2019-12-24 15:11] VITALS: BP 138/76
--- NOTE | 2019-12-24 15:11 | NUR ---
Signature Attestation Statement: I SARABJIT ESCOBAR performed this procedure EECP on this patient. Addendum: 12/24/19 at 1511 by SARABJIT ESCOBAR HDHI2 Amended: Links added.
--- NOTE | 2019-12-24 15:23 | NUR ---
Signature Attestation Statement: I SARABJIT ESCOBAR performed this procedure EECP on this patient. Addendum: 12/24/19 at 1523 by SARABJIT ESCOBAR HDHI2 Amended: Links added.
== END | disposition home or self-care (01) ==
LOC: CHF HDHVI 13:54
PROVIDERS: ATTEND Internal Medicine Cardiovascular Disease
DX: I25.118 Atherosclerotic heart disease of native coronary artery with other forms of angina pectoris (principal); I25.5 Ischemic cardiomyopathy; I10 Essential (primary) hypertension; E78.5 Hyperlipidemia, unspecified; R06.02 Shortness of breath; I63.9 Cerebral infarction, unspecified; I50.43 Acute on chronic combined systolic (congestive) and diastolic (congestive) heart failure
CPT/HCPCS: G0166

== ENCOUNTER → 2019-12-27 | Outpatient (CLI) | payer MEDICARE, BC ==
[2019-12-27 14:44] VITALS: BP 152/82
--- NOTE | 2019-12-27 14:44 | NUR ---
Signature Attestation Statement: I SARABJIT ESCOBAR performed this procedure EECP on this patient. Addendum: 12/27/19 at 1445 by SARABJIT ESCOBAR HDHI2 Amended: Links added.
--- NOTE | 2019-12-27 14:46 | NUR ---
Signature Attestation Statement: I SARABJIT ESCOBAR performed this procedure EECP on this patient. Addendum: 12/27/19 at 1446 by SARABJIT ESCOBAR HDHI2 Amended: Links added.
[2019-12-27 15:15] VITALS: BP 152/82
--- NOTE | 2019-12-27 15:15 | NUR ---
Signature Attestation Statement: I SARABJIT ESCOBAR performed this procedure EECP on this patient. Addendum: 12/27/19 at 1515 by SARABJIT ESCOBAR HDHI2 Amended: Links added.
--- NOTE | 2019-12-27 15:27 | NUR ---
Signature Attestation Statement: I SARABJIT ESCOBAR performed this procedure EECP on this patient. Addendum: 12/27/19 at 1527 by SARABJIT ESCOBAR HDHI2 Amended: Links added.
== END | disposition home or self-care (01) ==
LOC: CHF HDHVI 14:02
PROVIDERS: ATTEND Internal Medicine Cardiovascular Disease
DX: I25.118 Atherosclerotic heart disease of native coronary artery with other forms of angina pectoris (principal); I25.5 Ischemic cardiomyopathy; I10 Essential (primary) hypertension; E78.5 Hyperlipidemia, unspecified; R06.02 Shortness of breath; I63.9 Cerebral infarction, unspecified; I50.43 Acute on chronic combined systolic (congestive) and diastolic (congestive) heart failure
CPT/HCPCS: G0166

== ENCOUNTER → 2019-12-28 | Outpatient (CLI) | payer MEDICARE, BC ==
[2019-12-28 14:43] VITALS: BP 156/80
[2019-12-28 15:18] VITALS: BP 158/74
== END | disposition home or self-care (01) ==
LOC: CHF HDHVI 13:55
PROVIDERS: ATTEND Internal Medicine Cardiovascular Disease
DX: I25.118 Atherosclerotic heart disease of native coronary artery with other forms of angina pectoris (principal); I25.5 Ischemic cardiomyopathy; I10 Essential (primary) hypertension; R06.02 Shortness of breath; E78.5 Hyperlipidemia, unspecified; I63.9 Cerebral infarction, unspecified; I50.43 Acute on chronic combined systolic (congestive) and diastolic (congestive) heart failure
CPT/HCPCS: G0166

== ENCOUNTER → 2019-12-30 | Outpatient (CLI) | payer MEDICARE, BC ==
[2019-12-30 14:46] VITALS: BP 144/72
[2019-12-30 15:42] VITALS: BP 156/82
== END | disposition home or self-care (01) ==
LOC: CHF HDHVI 14:09
PROVIDERS: ATTEND Internal Medicine Cardiovascular Disease
DX: I25.118 Atherosclerotic heart disease of native coronary artery with other forms of angina pectoris (principal); I25.5 Ischemic cardiomyopathy; I10 Essential (primary) hypertension; E78.5 Hyperlipidemia, unspecified; R06.02 Shortness of breath; I50.43 Acute on chronic combined systolic (congestive) and diastolic (congestive) heart failure; I63.9 Cerebral infarction, unspecified
CPT/HCPCS: G0166

== ENCOUNTER → 2019-12-31 | Outpatient (CLI) | payer MEDICARE, BC ==
[2019-12-31 14:41] VITALS: BP 154/66
[2019-12-31 15:16] VITALS: BP 150/70
== END | disposition home or self-care (01) ==
LOC: CHF HDHVI 14:07
PROVIDERS: ATTEND Internal Medicine Cardiovascular Disease
DX: I25.118 Atherosclerotic heart disease of native coronary artery with other forms of angina pectoris (principal); I10 Essential (primary) hypertension; E78.5 Hyperlipidemia, unspecified; R06.02 Shortness of breath; I25.5 Ischemic cardiomyopathy; I50.43 Acute on chronic combined systolic (congestive) and diastolic (congestive) heart failure; I63.9 Cerebral infarction, unspecified
CPT/HCPCS: G0166

== ENCOUNTER → 2020-01-03 | Outpatient (CLI) | payer MEDICARE, BC ==
[2020-01-03 14:43] VITALS: BP 158/62
[2020-01-03 15:20] VITALS: BP 160/80
== END | disposition home or self-care (01) ==
LOC: CHF HDHVI 14:06
PROVIDERS: ATTEND Internal Medicine Cardiovascular Disease
DX: I25.118 Atherosclerotic heart disease of native coronary artery with other forms of angina pectoris (principal); I25.5 Ischemic cardiomyopathy; I10 Essential (primary) hypertension; E78.5 Hyperlipidemia, unspecified; I50.43 Acute on chronic combined systolic (congestive) and diastolic (congestive) heart failure; R06.02 Shortness of breath; I63.9 Cerebral infarction, unspecified
CPT/HCPCS: G0166

== ENCOUNTER → 2020-01-04 | Outpatient (CLI) | payer MEDICARE, BC ==
[2020-01-04 14:41] VITALS: BP 144/56
--- NOTE | 2020-01-04 14:41 | NUR ---
Signature Attestation Statement: I SARABJIT ESCOBAR performed this procedure EECP on this patient. Addendum: 01/04/20 at 1442 by SARABJIT ESCOBAR HDHI2 Amended: Links added.
--- NOTE | 2020-01-04 14:42 | NUR ---
Signature Attestation Statement: I SARABJIT ESCOBAR performed this procedure EECP on this patient. Addendum: 01/04/20 at 1443 by SARABJIT ESCOBAR HDHI2 Amended: Links added.
--- NOTE | 2020-01-04 14:43 | NUR ---
Signature Attestation Statement: I SARABJIT ESCOBAR performed this procedure EECP on this patient. Addendum: 01/04/20 at 1444 by SARABJIT ESCOBAR HDHI2 Amended: Links added.
--- NOTE | 2020-01-04 15:15 | NUR ---
Signature Attestation Statement: I SARABJIT ESCOBAR performed this procedure EECP on this patient. Addendum: 01/04/20 at 1516 by SARABJIT ESCOBAR HDHI2 Amended: Links added.
[2020-01-04 15:16] VITALS: BP 126/52
--- NOTE | 2020-01-04 15:28 | NUR ---
Signature Attestation Statement: I SARABJIT ESCOBAR performed this procedure EECP on this patient. Addendum: 01/04/20 at 1529 by SARABJIT ESCOBAR HDHI2 Amended: Links added.
== END | disposition home or self-care (01) ==
LOC: CHF HDHVI 14:09
PROVIDERS: ATTEND Internal Medicine Cardiovascular Disease
DX: I25.118 Atherosclerotic heart disease of native coronary artery with other forms of angina pectoris (principal); I25.5 Ischemic cardiomyopathy; I10 Essential (primary) hypertension; E78.5 Hyperlipidemia, unspecified; R06.02 Shortness of breath; I50.43 Acute on chronic combined systolic (congestive) and diastolic (congestive) heart failure; I63.9 Cerebral infarction, unspecified
CPT/HCPCS: G0166

== ENCOUNTER → 2020-01-05 | Outpatient (CLI) | payer MEDICARE, BC ==
[2020-01-05 14:38] VITALS: BP 156/52
[2020-01-05 15:11] VITALS: BP 146/52
== END | disposition home or self-care (01) ==
LOC: CHF HDHVI 14:02
PROVIDERS: ATTEND Internal Medicine Cardiovascular Disease
DX: I25.118 Atherosclerotic heart disease of native coronary artery with other forms of angina pectoris (principal); I25.5 Ischemic cardiomyopathy; I10 Essential (primary) hypertension; E78.5 Hyperlipidemia, unspecified; R06.02 Shortness of breath; I50.43 Acute on chronic combined systolic (congestive) and diastolic (congestive) heart failure; I63.9 Cerebral infarction, unspecified
CPT/HCPCS: G0166

== ENCOUNTER → 2020-01-06 | Outpatient (CLI) | payer MEDICARE, BC ==
[2020-01-06 14:50] VITALS: BP 162/64
[2020-01-06 14:57] VITALS: BP 148/60
== END | disposition home or self-care (01) ==
LOC: CHF HDHVI 11:24
PROVIDERS: ATTEND Internal Medicine Cardiovascular Disease
DX: I25.118 Atherosclerotic heart disease of native coronary artery with other forms of angina pectoris (principal); I25.5 Ischemic cardiomyopathy; I50.43 Acute on chronic combined systolic (congestive) and diastolic (congestive) heart failure; I10 Essential (primary) hypertension; E78.5 Hyperlipidemia, unspecified; R06.02 Shortness of breath; I63.9 Cerebral infarction, unspecified
CPT/HCPCS: G0166

== ENCOUNTER → 2020-01-07 | Outpatient (CLI) | payer MEDICARE, BC ==
[2020-01-07 14:08] VITALS: BP 160/64
--- NOTE | 2020-01-07 14:09 | NUR ---
Signature Attestation Statement: I SARABJIT ESCOBAR performed this procedure EECP on this patient. Addendum: 01/07/20 at 1409 by SARABJIT ESCOBAR HDHI2 Amended: Links added.
--- NOTE | 2020-01-07 14:10 | NUR ---
Signature Attestation Statement: I SARABJIT ESCOBAR performed this procedure EECP on this patient. Addendum: 01/07/20 at 1410 by SARABJIT ESCOBAR HDHI2 Amended: Links added.
--- NOTE | 2020-01-07 14:11 | NUR ---
Signature Attestation Statement: I SARABJIT ESCOBAR performed this procedure EECP on this patient. Addendum: 01/07/20 at 1411 by SRAABJIT ESCOBAR HDHI2 Amended: Links added.
[2020-01-07 14:16] VITALS: BP 149/64
--- NOTE | 2020-01-07 14:16 | NUR ---
Signature Attestation Statement: I SARABJIT ESCOBAR performed this procedure EECP on this patient. Addendum: 01/07/20 at 1416 by SARABJIT ESCOBAR HDHI2 Amended: Links added.
--- NOTE | 2020-01-07 14:17 | NUR ---
Signature Attestation Statement: I SARABJIT ESCOBAR performed this procedure EECP on this patient. Addendum: 01/07/20 at 1417 by SARABJIT ESCOBAR HDHI2 Amended: Links added.
== END | disposition home or self-care (01) ==
LOC: CHF HDHVI 11:24
PROVIDERS: ATTEND Internal Medicine Cardiovascular Disease
DX: I25.118 Atherosclerotic heart disease of native coronary artery with other forms of angina pectoris (principal); I11.0 Hypertensive heart disease with heart failure; I50.43 Acute on chronic combined systolic (congestive) and diastolic (congestive) heart failure; I25.5 Ischemic cardiomyopathy; R06.02 Shortness of breath; I63.9 Cerebral infarction, unspecified; E78.5 Hyperlipidemia, unspecified
CPT/HCPCS: G0166

== ENCOUNTER → 2020-01-10 | Outpatient (CLI) | payer MEDICARE, BC ==
[2020-01-10 16:37] VITALS: BP 160/64
--- NOTE | 2020-01-10 16:37 | NUR ---
Signature Attestation Statement: I SARABJIT ESCOBAR performed this procedure EECP on this patient. Addendum: 01/10/20 at 1637 by SARABJIT ESCOBAR HDHI2 Amended: Links added.
--- NOTE | 2020-01-10 16:38 | NUR ---
Signature Attestation Statement: I SARABJIT ESCOBAR performed this procedure EECP on this patient. Addendum: 01/10/20 at 1639 by SARABJIT ESCOBAR HDHI2 Amended: Links added.
--- NOTE | 2020-01-10 16:38 | NUR ---
Signature Attestation Statement: I SARABJIT ESCOBAR performed this procedure EECP on this patient. Addendum: 01/10/20 at 1638 by SARABJIT ESCOBAR HDHI2 Amended: Links added.
[2020-01-10 16:44] VITALS: BP 148/61
--- NOTE | 2020-01-10 16:44 | NUR ---
Signature Attestation Statement: I SARABJIT ESCOBAR performed this procedure EECP on this patient. Addendum: 01/10/20 at 1644 by SARABJIT ESCOBAR HDHI2 Amended: Links added.
--- NOTE | 2020-01-10 16:45 | NUR ---
Signature Attestation Statement: I SARABJIT ESCOBAR performed this procedure EECP on this patient. Addendum: 01/10/20 at 1645 by SARABJIT ESCOBAR HDHI2 Amended: Links added.
== END | disposition home or self-care (01) ==
LOC: CHF HDHVI 11:28
PROVIDERS: ATTEND Internal Medicine Cardiovascular Disease
DX: I25.118 Atherosclerotic heart disease of native coronary artery with other forms of angina pectoris (principal); I25.5 Ischemic cardiomyopathy; I11.0 Hypertensive heart disease with heart failure; I50.43 Acute on chronic combined systolic (congestive) and diastolic (congestive) heart failure; R06.02 Shortness of breath; I63.9 Cerebral infarction, unspecified; E78.5 Hyperlipidemia, unspecified
CPT/HCPCS: G0166

== ENCOUNTER → 2020-01-11 | Outpatient (CLI) | payer MEDICARE, BC ==
[2020-01-11 15:54] VITALS: BP 178/69
--- NOTE | 2020-01-11 15:54 | NUR ---
Signature Attestation Statement: I SARABJIT ESCOBAR performed this procedure EECP on this patient. Addendum: 01/11/20 at 1555 by SARABJIT ESCOBAR HDHI2 Amended: Links added.
--- NOTE | 2020-01-11 15:56 | NUR ---
Signature Attestation Statement: I SARABJIT ESCOBAR performed this procedure EECP on this patient. Addendum: 01/11/20 at 1556 by SARABJIT ESCOBAR HDHI2 Amended: Links added.
[2020-01-11 16:02] VITALS: BP 152/66
--- NOTE | 2020-01-11 16:02 | NUR ---
Signature Attestation Statement: I SARABJIT ESCOBAR performed this procedure EECP on this patient. Addendum: 01/11/20 at 1603 by SARABJIT ESCOBAR HDHI2 Amended: Links added.
--- NOTE | 2020-01-11 16:02 | NUR ---
Signature Attestation Statement: I SARABJIT ESCOBAR performed this procedure EECP on this patient. Addendum: 01/11/20 at 1602 by SARABJIT ESCOBAR HDHI2 Amended: Links added.
== END | disposition home or self-care (01) ==
LOC: CHF HDHVI 11:33
PROVIDERS: ATTEND Internal Medicine Cardiovascular Disease
DX: I25.118 Atherosclerotic heart disease of native coronary artery with other forms of angina pectoris (principal); I11.0 Hypertensive heart disease with heart failure; I50.43 Acute on chronic combined systolic (congestive) and diastolic (congestive) heart failure; I63.9 Cerebral infarction, unspecified; I25.5 Ischemic cardiomyopathy; E78.5 Hyperlipidemia, unspecified; R06.02 Shortness of breath
CPT/HCPCS: G0166

== ENCOUNTER → 2020-01-12 | Outpatient (CLI) | payer MEDICARE, BC ==
[2020-01-12 16:20] VITALS: BP 152/67
--- NOTE | 2020-01-12 16:23 | NUR ---
Signature Attestation Statement: I SARABJIT ESCOBAR performed this procedure EECP on this patient. Addendum: 01/12/20 at 1624 by SARABJIT ESCOBAR HDHI2 Amended: Links added.
--- NOTE | 2020-01-12 16:24 | NUR ---
Signature Attestation Statement: I SARABJIT ESCOBAR performed this procedure EECP on this patient. Addendum: 01/12/20 at 1625 by SARABJIT ESCOBAR HDHI2 Amended: Links added.
--- NOTE | 2020-01-12 16:26 | NUR ---
Signature Attestation Statement: I SARABJIT ESCOBAR performed this procedure EECP on this patient. Addendum: 01/12/20 at 1626 by SARABJIT ESCOBAR HDHI2 Amended: Links added.
--- NOTE | 2020-01-12 16:30 | NUR ---
Signature Attestation Statement: I SARABJIT ESCOBAR performed this procedure EECP on this patient. Addendum: 01/12/20 at 1631 by SARABJIT ESCOBAR HDHI2 Amended: Links added.
[2020-01-12 16:31] VITALS: BP 127/57
--- NOTE | 2020-01-12 16:32 | NUR ---
Signature Attestation Statement: I SARABJIT ESCOBAR performed this procedure EECP on this patient. Addendum: 01/12/20 at 1632 by SARABJIT ESCOBAR HDHI2 Amended: Links added.
== END | disposition home or self-care (01) ==
LOC: CHF HDHVI 11:32
PROVIDERS: ATTEND Internal Medicine Cardiovascular Disease
DX: I25.118 Atherosclerotic heart disease of native coronary artery with other forms of angina pectoris (principal); I25.5 Ischemic cardiomyopathy; I11.0 Hypertensive heart disease with heart failure; I50.43 Acute on chronic combined systolic (congestive) and diastolic (congestive) heart failure; I63.9 Cerebral infarction, unspecified; E78.5 Hyperlipidemia, unspecified; R06.02 Shortness of breath
CPT/HCPCS: G0166

== ENCOUNTER → 2020-01-13 | Outpatient (CLI) | payer MEDICARE, BC ==
[2020-01-13 12:09] VITALS: BP 198/75
--- NOTE | 2020-01-13 12:10 | NUR ---
Signature Attestation Statement: I SARABJIT ESCOBAR performed this procedure EECP on this patient. Addendum: 01/13/20 at 1211 by SARABJIT ESCOBAR HDHI2 Amended: Links added.
--- NOTE | 2020-01-13 12:12 | NUR ---
Signature Attestation Statement: I SARABJIT ESCOBAR performed this procedure EECP on this patient. Addendum: 01/13/20 at 1212 by SARABJIT ESCOBAR HDHI2 Amended: Links added.
--- NOTE | 2020-01-13 12:12 | NUR ---
Signature Attestation Statement: I SARABJIT ESCOBAR performed this procedure EECP on this patient. Addendum: 01/13/20 at 1213 by SARABJIT ESCOBAR HDHI2 Amended: Links added.
[2020-01-13 12:41] VITALS: BP 148/60
--- NOTE | 2020-01-13 12:41 | NUR ---
Signature Attestation Statement: I SARABJIT ESCOBAR performed this procedure EECP on this patient. Addendum: 01/13/20 at 1241 by SARABJIT ESCOBAR HDHI2 Amended: Links added.
--- NOTE | 2020-01-13 12:56 | NUR ---
Signature Attestation Statement: I SARABJIT ESCOBAR performed this procedure EECP on this patient. Addendum: 01/13/20 at 1256 by SARABJIT ESCOBAR HDHI2 Amended: Links added.
== END | disposition home or self-care (01) ==
LOC: CHF HDHVI 11:24
PROVIDERS: ATTEND Internal Medicine Cardiovascular Disease
DX: I25.118 Atherosclerotic heart disease of native coronary artery with other forms of angina pectoris (principal); I25.5 Ischemic cardiomyopathy; I11.0 Hypertensive heart disease with heart failure; I50.43 Acute on chronic combined systolic (congestive) and diastolic (congestive) heart failure; I63.9 Cerebral infarction, unspecified; E78.5 Hyperlipidemia, unspecified; R06.02 Shortness of breath
CPT/HCPCS: G0166

== ENCOUNTER → 2020-01-14 | Outpatient (CLI) | payer MEDICARE, BC ==
[2020-01-14 12:19] VITALS: BP 146/64
== END | disposition home or self-care (01) ==
LOC: CHF HDHVI 11:41
PROVIDERS: ATTEND Internal Medicine Cardiovascular Disease
DX: I25.118 Atherosclerotic heart disease of native coronary artery with other forms of angina pectoris (principal); I25.5 Ischemic cardiomyopathy; I11.0 Hypertensive heart disease with heart failure; I50.43 Acute on chronic combined systolic (congestive) and diastolic (congestive) heart failure; I63.9 Cerebral infarction, unspecified; E78.5 Hyperlipidemia, unspecified; R06.02 Shortness of breath
CPT/HCPCS: G0166

== ENCOUNTER → 2020-01-17 | Outpatient (CLI) | payer MEDICARE, BC ==
[2020-01-17 12:22] VITALS: BP 170/84
[2020-01-17 12:49] VITALS: BP 164/78
== END | disposition home or self-care (01) ==
LOC: CHF HDHVI 11:36
PROVIDERS: ATTEND Internal Medicine Cardiovascular Disease
DX: I25.118 Atherosclerotic heart disease of native coronary artery with other forms of angina pectoris (principal); I25.5 Ischemic cardiomyopathy; I11.0 Hypertensive heart disease with heart failure; I50.43 Acute on chronic combined systolic (congestive) and diastolic (congestive) heart failure; I63.9 Cerebral infarction, unspecified; R06.02 Shortness of breath; E78.5 Hyperlipidemia, unspecified; Z95.5 Presence of coronary angioplasty implant and graft
CPT/HCPCS: G0166

== ENCOUNTER → 2020-01-18 | Outpatient (CLI) | payer MEDICARE, BC ==
[2020-01-18 12:17] VITALS: BP 178/76
[2020-01-18 12:53] VITALS: BP 155/79
== END | disposition home or self-care (01) ==
LOC: CHF HDHVI 11:33
PROVIDERS: ATTEND Internal Medicine Cardiovascular Disease
DX: I25.118 Atherosclerotic heart disease of native coronary artery with other forms of angina pectoris (principal); I25.5 Ischemic cardiomyopathy; I11.0 Hypertensive heart disease with heart failure; I50.43 Acute on chronic combined systolic (congestive) and diastolic (congestive) heart failure; I63.9 Cerebral infarction, unspecified; E78.5 Hyperlipidemia, unspecified; R06.02 Shortness of breath
CPT/HCPCS: G0166

== ENCOUNTER → 2020-01-19 | Outpatient (CLI) | payer MEDICARE, BC ==
[2020-01-19 12:06] VITALS: BP 151/57
[2020-01-19 12:43] VITALS: BP 142/57
== END | disposition home or self-care (01) ==
LOC: CHF HDHVI 11:35
PROVIDERS: ATTEND Internal Medicine Cardiovascular Disease
DX: I25.118 Atherosclerotic heart disease of native coronary artery with other forms of angina pectoris (principal); I25.5 Ischemic cardiomyopathy; I11.0 Hypertensive heart disease with heart failure; I50.43 Acute on chronic combined systolic (congestive) and diastolic (congestive) heart failure; I63.9 Cerebral infarction, unspecified; E78.5 Hyperlipidemia, unspecified; R06.02 Shortness of breath
CPT/HCPCS: G0166

== ENCOUNTER → 2020-01-20 | Outpatient (CLI) | payer MEDICARE, BC ==
[2020-01-20 12:01] VITALS: BP 177/72
[2020-01-20 12:34] VITALS: BP 135/55
== END | disposition home or self-care (01) ==
LOC: CHF HDHVI 11:23
PROVIDERS: ATTEND Internal Medicine Cardiovascular Disease
DX: I25.118 Atherosclerotic heart disease of native coronary artery with other forms of angina pectoris (principal); I25.5 Ischemic cardiomyopathy; I11.0 Hypertensive heart disease with heart failure; I50.43 Acute on chronic combined systolic (congestive) and diastolic (congestive) heart failure; I63.9 Cerebral infarction, unspecified; R06.02 Shortness of breath; E78.5 Hyperlipidemia, unspecified
CPT/HCPCS: G0166

== ENCOUNTER → 2020-01-21 | Outpatient (CLI) | payer MEDICARE, BC ==
[2020-01-21 12:10] VITALS: BP 184/70
--- NOTE | 2020-01-21 12:11 | NUR ---
Signature Attestation Statement: I SARABJIT ESCOBAR performed this procedure EECP on this patient. Addendum: 01/21/20 at 1211 by SARABJIT ESCOBAR HDHI2 Amended: Links added.
--- NOTE | 2020-01-21 12:12 | NUR ---
Signature Attestation Statement: I SARABJIT ESCOBAR performed this procedure EECP on this patient. Addendum: 01/21/20 at 1212 by SARABJIT ESCOBAR HDHI2 Amended: Links added.
[2020-01-21 12:41] VITALS: BP 165/63
--- NOTE | 2020-01-21 12:41 | NUR ---
Signature Attestation Statement: I SARABJIT ESCOBAR performed this procedure EECP on this patient. Addendum: 01/21/20 at 1241 by SARABJIT ESCOBAR HDHI2 Amended: Links added.
--- NOTE | 2020-01-21 12:53 | NUR ---
Signature Attestation Statement: I SARABJIT ESCOBAR performed this procedure EECP on this patient. Addendum: 01/21/20 at 1253 by SARABJIT ESCOBAR HDHI2 Amended: Links added.
== END | disposition home or self-care (01) ==
LOC: CHF HDHVI 11:28
PROVIDERS: ATTEND Internal Medicine Cardiovascular Disease
DX: I25.118 Atherosclerotic heart disease of native coronary artery with other forms of angina pectoris (principal); I25.5 Ischemic cardiomyopathy; I11.0 Hypertensive heart disease with heart failure; I50.43 Acute on chronic combined systolic (congestive) and diastolic (congestive) heart failure; R06.02 Shortness of breath; E78.5 Hyperlipidemia, unspecified; I63.9 Cerebral infarction, unspecified
CPT/HCPCS: G0166

== ENCOUNTER → 2020-01-24 | Outpatient (CLI) | payer MEDICARE, BC ==
[2020-01-24 12:25] VITALS: BP 170/78
--- NOTE | 2020-01-24 12:25 | NUR ---
Signature Attestation Statement: I SARABJIT ESCOBAR performed this procedure EECP on this patient. Addendum: 01/24/20 at 1226 by SARABJIT ESCOBAR HDHI2 Amended: Links added.
--- NOTE | 2020-01-24 12:26 | NUR ---
Signature Attestation Statement: I SARABJIT ESCOBAR performed this procedure EECP on this patient. Addendum: 01/24/20 at 1227 by SARABJIT ESCOBAR HDHI2 Amended: Links added.
--- NOTE | 2020-01-24 12:52 | NUR ---
Signature Attestation Statement: I SARABJIT ESCOBAR performed this procedure EECP on this patient. Addendum: 01/24/20 at 1253 by SARABJIT ESCOBAR HDHI2 Amended: Links added.
[2020-01-24 12:53] VITALS: BP 121/59
--- NOTE | 2020-01-24 13:05 | NUR ---
Signature Attestation Statement: I SARABJIT ESCOBAR performed this procedure EECP on this patient. Addendum: 01/24/20 at 1308 by SARABJIT ESCOBAR HDHI2 Amended: Links added.
== END | disposition home or self-care (01) ==
LOC: CHF HDHVI 11:33
PROVIDERS: ATTEND Internal Medicine Cardiovascular Disease
DX: I25.118 Atherosclerotic heart disease of native coronary artery with other forms of angina pectoris (principal); I25.5 Ischemic cardiomyopathy; I11.0 Hypertensive heart disease with heart failure; I50.43 Acute on chronic combined systolic (congestive) and diastolic (congestive) heart failure; I63.9 Cerebral infarction, unspecified; E78.5 Hyperlipidemia, unspecified; R06.02 Shortness of breath
CPT/HCPCS: G0166

== ENCOUNTER → 2020-01-25 | Outpatient (CLI) | payer MEDICARE, BC ==
[2020-01-25 14:47] VITALS: BP 154/82
--- NOTE | 2020-01-25 14:47 | NUR ---
Signature Attestation Statement: I SARABJIT ESCOBAR performed this procedure EECP on this patient. Addendum: 01/25/20 at 1447 by SARABJIT ESCOBAR HDHI2 Amended: Links added.
--- NOTE | 2020-01-25 14:48 | NUR ---
Signature Attestation Statement: I SARABJIT ESCOBAR performed this procedure EECP on this patient. Addendum: 01/25/20 at 1448 by SARABJIT ESCOBAR HDHI2 Amended: Links added.
[2020-01-25 14:51] VITALS: BP 160/78
--- NOTE | 2020-01-25 14:51 | NUR ---
Signature Attestation Statement: I SARABJIT ESCOBAR performed this procedure EECP on this patient. Addendum: 01/25/20 at 1452 by SARABJIT ESCOBAR HDHI2 Amended: Links added.
--- NOTE | 2020-01-25 14:51 | NUR ---
Signature Attestation Statement: I SARABJIT ESCOBAR performed this procedure EECP on this patient. Addendum: 01/25/20 at 1451 by SARABJIT ESCOBAR HDHI2 Amended: Links added.
== END | disposition home or self-care (01) ==
LOC: CHF HDHVI 11:30
PROVIDERS: ATTEND Internal Medicine Cardiovascular Disease
DX: I25.118 Atherosclerotic heart disease of native coronary artery with other forms of angina pectoris (principal); I25.5 Ischemic cardiomyopathy; I11.0 Hypertensive heart disease with heart failure; I50.43 Acute on chronic combined systolic (congestive) and diastolic (congestive) heart failure; I63.9 Cerebral infarction, unspecified; E78.5 Hyperlipidemia, unspecified; R06.02 Shortness of breath
CPT/HCPCS: G0166

== ENCOUNTER → 2020-01-26 | Outpatient (CLI) | payer MEDICARE, BC ==
[2020-01-26 12:06] VITALS: BP 154/68
[2020-01-26 12:38] VITALS: BP 158/72
== END | disposition home or self-care (01) ==
LOC: CHF HDHVI 11:29
PROVIDERS: ATTEND Internal Medicine Cardiovascular Disease
DX: I25.118 Atherosclerotic heart disease of native coronary artery with other forms of angina pectoris (principal); I25.5 Ischemic cardiomyopathy; I11.0 Hypertensive heart disease with heart failure; I50.43 Acute on chronic combined systolic (congestive) and diastolic (congestive) heart failure; R06.02 Shortness of breath; E78.5 Hyperlipidemia, unspecified; I63.9 Cerebral infarction, unspecified
CPT/HCPCS: G0166

== ENCOUNTER → 2020-01-27 | Outpatient (CLI) | payer MEDICARE, BC ==
[2020-01-27 12:06] VITALS: BP 160/74
--- NOTE | 2020-01-27 12:06 | NUR ---
Signature Attestation Statement: I SARABJIT ESCOBAR performed this procedure EECP on this patient. Addendum: 01/27/20 at 1207 by SARABJIT ESCOBAR HDHI2 Amended: Links added.
--- NOTE | 2020-01-27 12:07 | NUR ---
Signature Attestation Statement: I SARABJIT ESCOBAR performed this procedure EECP on this patient. Addendum: 01/27/20 at 1208 by SARABJIT ESCOBAR HDHI2 Amended: Links added.
[2020-01-27 12:39] VITALS: BP 156/70
--- NOTE | 2020-01-27 12:39 | NUR ---
Signature Attestation Statement: I SARABJIT ESCOBAR performed this procedure EECP on this patient. Addendum: 01/27/20 at 1239 by SARABJIT ESCOBAR HDHI2 Amended: Links added.
--- NOTE | 2020-01-27 12:54 | NUR ---
Signature Attestation Statement: I SARABJIT ESCOBAR performed this procedure EECP on this patient. Addendum: 01/27/20 at 1254 by SARABJIT ESCOBAR HDHI2 Amended: Links added.
== END | disposition home or self-care (01) ==
LOC: CHF HDHVI 11:32
PROVIDERS: ATTEND Internal Medicine Cardiovascular Disease
DX: I25.118 Atherosclerotic heart disease of native coronary artery with other forms of angina pectoris (principal); I25.5 Ischemic cardiomyopathy; I11.0 Hypertensive heart disease with heart failure; I50.43 Acute on chronic combined systolic (congestive) and diastolic (congestive) heart failure; I63.9 Cerebral infarction, unspecified; R06.02 Shortness of breath; E78.5 Hyperlipidemia, unspecified
CPT/HCPCS: G0166

== ENCOUNTER → 2020-01-28 | Outpatient (CLI) | payer MEDICARE, BC ==
[2020-01-28 12:09] VITALS: BP 160/74
--- NOTE | 2020-01-28 12:10 | NUR ---
Signature Attestation Statement: I SARABJIT ESCOBAR performed this procedure EECP on this patient. Addendum: 01/28/20 at 1210 by SARABJIT ESCOBAR HDHI2 Amended: Links added.
--- NOTE | 2020-01-28 12:11 | NUR ---
Signature Attestation Statement: I SARABJIT ESCOBAR performed this procedure EECP on this patient. Addendum: 01/28/20 at 1211 by SARABJIT ESCOBAR HDHI2 Amended: Links added.
[2020-01-28 12:40] VITALS: BP 158/84
--- NOTE | 2020-01-28 12:40 | NUR ---
Signature Attestation Statement: I SARABJIT ESCOBAR performed this procedure EECP on this patient. Addendum: 01/28/20 at 1240 by SARABJIT ESCOBAR HDHI2 Amended: Links added.
--- NOTE | 2020-01-28 12:56 | NUR ---
Signature Attestation Statement: I SARABJIT ESCOBAR performed this procedure EECP on this patient. Addendum: 01/28/20 at 1256 by SARABJIT ESCOBAR HDHI2 Amended: Links added.
== END | disposition home or self-care (01) ==
LOC: CHF HDHVI 11:35
PROVIDERS: ATTEND Internal Medicine Cardiovascular Disease
DX: I25.118 Atherosclerotic heart disease of native coronary artery with other forms of angina pectoris (principal); I25.5 Ischemic cardiomyopathy; I11.0 Hypertensive heart disease with heart failure; I50.43 Acute on chronic combined systolic (congestive) and diastolic (congestive) heart failure; I63.9 Cerebral infarction, unspecified; R06.02 Shortness of breath; E78.5 Hyperlipidemia, unspecified
CPT/HCPCS: G0166

== ENCOUNTER → 2020-01-31 | Outpatient (CLI) | payer MEDICARE, BC ==
[2020-01-31 12:17] VITALS: BP 154/74
--- NOTE | 2020-01-31 12:17 | NUR ---
Signature Attestation Statement: I SARABJIT ESCOBAR performed this procedure EECP on this patient. Addendum: 01/31/20 at 1218 by SARABJIT ESCOBAR HDHI2 Amended: Links added.
--- NOTE | 2020-01-31 12:18 | NUR ---
Signature Attestation Statement: I SARABJIT ESCOBAR performed this procedure EECP on this patient. Addendum: 01/31/20 at 1219 by SARABJIT ESCOBAR HDHI2 Amended: Links added.
--- NOTE | 2020-01-31 12:50 | NUR ---
Signature Attestation Statement: I SARABJIT ESCOBAR performed this procedure EECP on this patient. Addendum: 01/31/20 at 1251 by SARABJIT ESCOBAR HDHI2 Amended: Links added.
[2020-01-31 12:51] VITALS: BP 150/70
--- NOTE | 2020-01-31 13:04 | NUR ---
Signature Attestation Statement: I SARABJIT ESCOBAR performed this procedure EECP on this patient. Addendum: 01/31/20 at 1310 by SARABJIT ESCOBAR HDHI2 Amended: Links added.
== END | disposition home or self-care (01) ==
LOC: CHF HDHVI 11:36
PROVIDERS: ATTEND Internal Medicine Cardiovascular Disease
DX: I25.118 Atherosclerotic heart disease of native coronary artery with other forms of angina pectoris (principal); I25.5 Ischemic cardiomyopathy; I11.0 Hypertensive heart disease with heart failure; I50.43 Acute on chronic combined systolic (congestive) and diastolic (congestive) heart failure; I63.9 Cerebral infarction, unspecified; R06.02 Shortness of breath; E78.5 Hyperlipidemia, unspecified
CPT/HCPCS: G0166

== ENCOUNTER → 2020-03-07 | Outpatient (CLI) | payer MEDICARE, BC | END | disposition home or self-care (01) | LOC: Rad HDHVI 08:59 | PROVIDERS: ATTEND Internal Medicine Cardiovascular Disease | DX: I20.9 Angina pectoris, unspecified (principal); I25.5 Ischemic cardiomyopathy | CPT/HCPCS: 93306 ==

== ENCOUNTER → 2020-03-14 | Outpatient (CLI) | payer MEDICARE, BC ==
[~2020-03-14] VITALS: Ht 170.2 cm; Wt 63.0 kg
[~2020-03-14] MED LIST changes: +ADENOSINE 53 MG in GIVE UN-DILUTED 0 ML IV ONE; +ADENOSINE 90 MG/30 ML INJ IV ONE
[2020-03-14 15:51] LABS: Basophils # (auto) 0 10 ^3/uL (0-0.2); Basophils % (auto) 0.3 % (0.0-2.0); Eosinophils # (auto) 0.1 10 ^3/uL (0-0.8); Eosinophils % (auto) 1.6 % (0.0-7.0); Hematocrit 38.6 % (36.0-46.0); Hemoglobin 13.3 g/dL (12.2-16.2); Lymphocytes # (auto) 1.9 10 ^3/uL (0.4-5.4); Lymphocytes % (auto) 23.4 % (10.0-50.0); Mean Corpuscular Hemoglobin 31.9 pg (28.0-32.0); Mean Corpuscular Hgb Conc. 34.4 g/dL (32.0-36.0); Mean Corpuscular Volume 92.6 fL (80.0-100.0); Monocytes # (auto) 0.5 10 ^3/uL (0-1.3); Monocytes % (auto) 6.1 % (0.0-12.0); Neutrophils # (auto) 5.5 10 ^3/uL (1.6-8.6); Neutrophils % (auto) 68.6 % (37.0-80.0); Nucleated Red Blood Cells % 0.1 %; Platelet Count (auto) 186 10^3/uL (140-450); Red Blood Cells 4.17 10^6/uL (4.0-5.20); Red Cell Distribution Width 12.8 % (11.8-14.3); Urine Blood Negative /uL (Negative); Urine Specific Gravity 1.013 (1.001-1.035)
[2020-03-14 16:11] LABS: Albumin 3.9 g/dL (3.4-5.0); Calcium 9.3 mg/dL (8.5-10.1); Potassium 3.7 mmol/L (3.5-5.1)
[2020-03-14 16:15] LABS: BUN/Creatinine Ratio 25.4; Bilirubin, Total 0.4 mg/dL (0.2-1.0); Total Protein 7.4 g/dL (6.4-8.2)
[2020-03-14 16:20] LABS: Free T4 (Free Thyroxine) 0.84 ng/dL (0.89-1.76)
== END | disposition home or self-care (01) ==
LOC: Rad HDHVI 12:56
PROVIDERS: ATTEND Internal Medicine Cardiovascular Disease
DX: I25.10 Atherosclerotic heart disease of native coronary artery without angina pectoris (principal); I10 Essential (primary) hypertension; E78.00 Pure hypercholesterolemia, unspecified; D51.3 Other dietary vitamin B12 deficiency anemia; E11.9 Type 2 diabetes mellitus without complications; R07.9 Chest pain, unspecified; E55.9 Vitamin D deficiency, unspecified; D64.9 Anemia, unspecified; R00.2 Palpitations; R53.1 Weakness; R30.0 Dysuria
CPT/HCPCS: 36415; 78452; 80053; 80061; 81003; 82306; 82607; 83036; 84439; 84443; 85025; 93005; 96374; 96375; A9500; J0153

== ENCOUNTER → 2020-08-21 | Outpatient (CLI) | payer MEDICARE, BC ==
[~2020-08-21] MED LIST changes: -ADENOSINE 53 MG in GIVE UN-DILUTED 0 ML IV ONE; -ADENOSINE 90 MG/30 ML INJ IV ONE; +AMLO-483 PO; +AMOX-277 PO; +DICL1GEL50 TOP; +EMPA1TAB3 PO; +RIVA2.5T PO; +SACU1TAB PO; +SILV1CRE98 TOP; +TRAM50TA2 PO
[2020-08-21 08:35] VITALS: BP 192/77
[2020-08-21 09:01] VITALS: BP 173/67
[2020-08-21 11:45] LABS: Basophils # (auto) 0 10 ^3/uL (0-0.2); Basophils % (auto) 0.3 % (0.0-2.0); Eosinophils # (auto) 0.1 10 ^3/uL (0-0.8); Eosinophils % (auto) 0.7 % (0.0-7.0); Hematocrit 40.7 % (36.0-46.0); Hemoglobin 13.8 g/dL (12.2-16.2); Lymphocytes # (auto) 1.6 10 ^3/uL (0.4-5.4); Lymphocytes % (auto) 19.5 % (10.0-50.0); Mean Corpuscular Hemoglobin 31.5 pg (28.0-32.0); Mean Corpuscular Hgb Conc. 33.8 g/dL (32.0-36.0); Mean Corpuscular Volume 93.2 fL (80.0-100.0); Monocytes # (auto) 0.6 10 ^3/uL (0-1.3); Monocytes % (auto) 7.2 % (0.0-12.0); Neutrophils # (auto) 5.9 10 ^3/uL (1.6-8.6); Neutrophils % (auto) 72.3 % (37.0-80.0); Platelet Count (auto) 181 10^3/uL (140-450); Red Blood Cells 4.37 10^6/uL (4.0-5.20); Red Cell Distribution Width 14.1 % (11.8-14.3); White Blood Cell 8.1 10^3/uL (4.4-10.8)
[2020-08-21 11:54] LABS: INR 1.05 (0.9-1.15); Partial Thromboplastin Time 29.6 sec (23.0-31.2)
[2020-08-21 11:56] LABS: BUN/Creatinine Ratio 24.5; Calcium 9.3 mg/dL (8.5-10.1)
== END | disposition home or self-care (01) ==
LOC: Rad HDHVI 08:24
PROVIDERS: ATTEND Internal Medicine Cardiovascular Disease
DX: Z01.812 Encounter for preprocedural laboratory examination (principal); J44.9 Chronic obstructive pulmonary disease, unspecified; I70.0 Atherosclerosis of aorta; M85.80 Other specified disorders of bone density and structure, unspecified site
CPT/HCPCS: 36415; 71046; 80048; 85025; 85610; 85730; 93005; G0463

== ENCOUNTER 2020-08-24 06:41 | Day surgery (SDC) | payer MEDICARE, BC ==
[~2020-08-24] VITALS: Ht 170.2 cm; Wt 61.7 kg
[~2020-08-24 06:41] MED LIST changes: -CARI-277 PO; -CLOP75TA28 PO; -RAMI5CAP40 PO
[2020-08-24] MEDS ORDERED: LIDOCAINE 2%HCL (LOCAL ANESTH.) INJ 20ML MDV ONE (07:16)
[2020-08-24] MEDS ORDERED: IOHEXOL 350 MG/ML 100ML IJ ONE ×2 (07:17→09:41)
[2020-08-24] MEDS ORDERED: ANGIOMAX 250 MG VIAL IV ONE (08:58)
[2020-08-24] MEDS ORDERED: methylPREDNISolone SOD SUCC 125 MG/2 ML VL ONE (08:58)
[2020-08-24] MEDS ORDERED: diphenhdrAMINE HCL 50 MG/1 ML VL ONE (08:58)
[2020-08-24] MEDS ORDERED: fentaNYL CITRATE 100 MCG/2 ML VL ONE (08:59)
[2020-08-24] MEDS ORDERED: MIDAZOLAM HCL 1MG/1ML-2 ML VIAL ONE (09:00)
[2020-08-24] MEDS ORDERED: FAMOTIDINE (10MG/ML) 2ML VL IV ONE (09:00)
[2020-08-24] MEDS ORDERED: SODIUM CHL 0.9% 0 ML ONE (09:00)
[2020-08-24] MEDS ORDERED: ONDANSETRON HCL 4 MG/2 ML VIAL IV PRN (10:15)
[2020-08-24] MEDS ORDERED: ACETAMINOPHEN 500 MG TAB PO PRN (10:15)
== END 2020-08-24 13:03 | disposition home or self-care (01) ==
LOC: CATH 06:41
PROVIDERS: ATTEND Internal Medicine Cardiovascular Disease
DX: I70.211 Atherosclerosis of native arteries of extremities with intermittent claudication, right leg (principal); E78.5 Hyperlipidemia, unspecified; I25.10 Atherosclerotic heart disease of native coronary artery without angina pectoris; I11.0 Hypertensive heart disease with heart failure; F41.9 Anxiety disorder, unspecified; F32.9 Major depressive disorder, single episode, unspecified; Z20.822 Contact with and (suspected) exposure to COVID-19; Z98.890 Other specified postprocedural states; Z79.899 Other long term (current) drug therapy; Z91.013 Allergy to seafood; Z88.4 Allergy status to anesthetic agent; Z95.5 Presence of coronary angioplasty implant and graft; Z90.710 Acquired absence of both cervix and uterus
CPT/HCPCS: 36247; 75716; C1760; C1894; J1200; J1644; J2250; J2930; J3010; J3490; J7030; Q9967; U0003; 99152; 99153